=== PATIENT | female | born 1980 | race Caucasian/White ===

== ENCOUNTER 2018-01-23 17:25 | Inpatient (IN) | payer OTHER ==
[~2018-01-23] VITALS: Ht 172.7 cm; Wt 66.8 kg
--- NOTE | 2018-01-24 00:15 | NUR ---
HANDOFF REPORT RECEIVED FROM TELECOM ANALYST LENARD, PT ABLE TO AMBULATE FROM ED TO MS FLOOR ARRIVING AT 2240 W NURSING STAFF. IVF BOLUS INFUSING WNL. PT ASSESSMENT COMPLETE, PT DROWSY, EASILY AROUSABLE BY VOICE. RATES PAIN 4/10 IN LOWER ABDOMEN "CRAMPING", DENIES NAUSEA, BOWEL TONES ACTIVE X 4, TENDERNESS IN LOWER QUADRANT WITH MOVING, PALPATION, PAIN IS TOLERABLE. CSM INTACT BUE, BLE, LUNGS CLEAR THROUGHOUT. PT ON ROOM AIR. CALL LIGHT IN REACH, WILL CONTINUE TO MONITOR.
--- NOTE | 2018-01-24 01:58 | NUR ---
CHECKED ON PT, APPEARS TO BE SLEEPING, EYES CLOSED, VISIBLE CHEST RISE, LIGHTS OFF IN ROOM. IVF INFUSING.
--- NOTE | 2018-01-24 04:40 | NUR ---
PT ASSESSMENT COMPLETE AT THIS TIME, PT DROWSY, AWAKENS EASILY TO VOICE. CONTINUES TO RATE PAIN 4/10 IN LOWER ABD, BOWEL TONES ACTIVE X 4, ABDOMEN SOFT, NON-TENDER WITH LIGHT PALPATION. IVF INFUSING WNL. VITALS COMPLETE WNL. SCDS ON. CALL LIGHT IN REACH, NO REQUESTS AT THIS TIME.
--- NOTE | 2018-01-24 05:40 | NUR ---
PT INDEPENDANT IN ROOM. RECEIVED 1 L IVF BOLUS, IVF INFUSING THROUGHOUT SHIFT WNL. BOWEL TONES ACTIVE, ABD SOFT, PAIN TOLEABLE PER PT. NO DIARRHEA, NAUSEA NOTED. PT SLEEPING THROUGHOUT SHIFT AFTER ARRIVING TO MS FLOOR AT 2340. SCDS ON.
--- NOTE | 2018-01-24 06:55 | NUR ---
IV ZOSYN INFUSING WNL. PT DENIES NAUSEA, JELLO, BROTH GIVEN TO PT REQUESTED. SCDS ON. CALL LIGHT IN REACH.
--- NOTE | 2018-01-24 07:00 | NUR ---
BEDSIDE HANDOFF REPORT RECEIVED FROM MDS NURSE RN. PT RESTING IN BED, EATING JELLO. PT DENIES PAIN, DENIES NAUSEA. D5LR INFUSING AT 100 ML/HR, ZOSYN INFUSING. PT DENIES NEEDS AT THIS TIME.
--- NOTE | 2018-01-24 09:07 | NUR ---
PATIENT IN BED, EYES CLOSED. WOKE BRIEFLY THIS CLERK TRAVEL RESERVATIONS ENTERED ROOM. ROOM TIDIED, CALL LIGHT IN REACH, DENIED ANY OTHER NEEDS
--- NOTE | 2018-01-24 09:25 | NUR ---
PT RESTING IN BED. PT STATES PAIN TOELRABLE AT THIS TIME. PT DENIES NAUSEA. PT ON ROOM AIR, LUNG SOUNDS CLEAR. BOWEL TONES ACTIVE, TOLERATING CLEAR LIQUID DIET. IV FLUIDS INFUSING, IV PATENT, FLUSHED. PT WITHOUT EDEMA. CMS INTACT, SCDS IN PLACE. PT INDEPENDENT IN ROOM. PT DENIES OTHER NEEDS AT THIS TIME. DISCUSSED PLAN OF CARE FOR THE DAY.
--- NOTE | 2018-01-24 09:55 | NUR ---
Medication reconciliation completed.
--- NOTE | 2018-01-24 13:20 | NUR ---
PER PT REQUEST IV ATTEMPTED X2, UNABLE TO OBTAIN NEW IV SITE. PT DECLINING FOR ANOTHER NURSE TO ATTEMPT IV. PT INSTRUCTED TO ASK FOR NEW IV IF LEFT AC SITE CONTINUES TO INHIBIT MOVEMENT AND "IS IN THE WAY". LEFT AC SITE IS PATENT AND INFUSING.
--- NOTE | 2018-01-24 13:57 | NUR ---
PATIENT UP IN BED, VITALS AND I/OS RECORDED. CALLL LIGHT IN REACH, NO OHTER NEEDS
--- NOTE | 2018-01-24 17:29 | NUR ---
PT RESTING IN BED. PT PROVIDED WITH CRACKERS AND PEANUT BUTTER, AWAITING DINNER. PT ON ROOM AIR. IV FLUIDS CONTINUE TO INFUSE AT 125 ML/HR. PT PROVIDED WITH PO CIPRO AND FLAGYL, EDUCATED ON SIDE EFFECTS OF FLAGYL AND TOLD TO TAKE WITH FOOD. PT DENIES NAUSEA. INDEPENDENT IN ROOM. PT DENIES OTHER NEEDS AT THIS TIME. NO ACUTE CHANGES.
--- NOTE | 2018-01-24 17:32 | NUR ---
PT ON ROOM AIR, LUNG SOUNDS CLEAR. PT DENIED NAUSEA, PAIN TOLERABLE, DID NOT REQUIRE PAIN MEDICATION. IV FLUIDS INFUSING D5LR AT 125 ML/HR. TRANSITIONED TO PO ABX. PT INDEPENDENT IN ROOM. ADVANCED TO LOW FIBER DIET. VOIDING QS. PLAN TO DISCHARGE TOMORROW.
--- NOTE | 2018-01-24 17:42 | NUR ---
PATIENT UP IN ROOM, IN BR VITALS AND I/OS RECORDED. DIETARY IN WITH DINNER, PATIENT UP IN BED TO EAT. CALL LIGHT IN REACH.
--- NOTE | 2018-01-24 17:52 | HP ---
[facility] [address] [place], [place] [address] Signed ADMISSION DATE: 01/23/2018 REASON FOR ADMISSION: Acute diverticulitis with peridiverticular contained perforation. 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 She had no associated nausea, vomiting, or urinary symptoms particularly. She presented to the emergency room where she was thoroughly evaluated by Dr. Rizzo. Tenderness was noted in the suprapubic area. She had pelvic cramping since yesterday. She had no prior similar such symptoms of pain and evaluation was undertaken, which included a CT scan. A CT scan was rather remarkable for significant sigmoid diverticulitis with a peridiverticular phlegmon and air bubble outside the colon itself. There was no evidence of generalized free air. She was noted to have an elevated white count of 13.6. The patient has had no pneumaturia, or other bladder problems particularly. She has not known to have had diverticular problems in the past. A pelvic exam performed by the emergency room physician showed a normal exam. She was admitted for further evaluation and care. PAST MEDICAL HISTORY: Significant for bilateral tubal ligation. A beta HCG was obtained and was negative. ALLERGIES: She has no known drug allergies. MEDICATIONS: Takes no medications chronically. SOCIAL HISTORY: She is . She goes by the last name of ConsiderC. She works at [employer] locally. She has three children. The youngest is 20, who has now moved back home. She does not use alcohol. She does smoke on a daily basis. PHYSICAL EXAMINATION: GENERAL: A relatively thin white woman who looks not to be systemically toxic per se. Trachea is midline. Mucous membranes slightly dry. CHEST: Clear. HEART: Regular without murmur. Electronically Signed By: AMOR FRANKLIN MD 01/24/18 1752 PATIENT NAME: MAYI NEVAREZ HISTORY AND PHYSICAL DATE OF : 76 REPORT #: [id number] PHYSICIAN: AMOR FRANKLIN MD PCP: NO PRIMARY CARE PHYSICIAN REPORT IS CONFIDENTIAL AND NOT TO BE RELEASED WITHOUT AUTHORIZATION [facility] [address] [place], [place] [address] Signed ABDOMEN: Flat and nondistended. There is suprapubic tenderness to a lesser degree with left lower quadrant tenderness. She shows no sign of generalized peritonitis. There is no ascites. EXTREMITIES: No clubbing, cyanosis, or edema. She does have lower extremity tattoos. LABORATORY DATA: Studies show white count of 13.6, hematocrit 32.9, platelets 293,000. Electrolytes are normal, creatinine 0.83. Liver enzymes are normal. Lipase 23. Urinalysis is normal. She had small amount of leukocyte esterase. Urine white cells were 10. I reviewed the CT scan myself, which shows a rather significant phlegmon of a low sigmoid with air in the mesenteric portion without well-formed abscess proper. ASSESSMENT: She has rather significant acute diverticulitis. This is her first episode. I would recommend admission to the hospital, intravenous antibiotics, and bowel rest. Clear liquids might be allowed for comfort. I discussed the pathophysiology of the problem with the patient and her female friend who attends her at this time. She may require more than one day of IV antibiotics, but a transition to oral antibiotics and a low-fiber diet on the short term would be anticipated as well. We discussed that also. Ultimately, colonoscopy may be appropriate to assess for neoplastic disease, though it is less likely given her young age of 37 years. Amor Franklin MD /MODL /[id number] cc: Elenita Rizzo MD Copies: ELENITA RIZZO MD ~ Electronically Signed By: AMOR FRANKLIN MD 01/24/18 1752 PATIENT NAME: ENRICO BATESMAYI ANN HISTORY AND PHYSICAL DATE OF : 76 REPORT #: [id number] PHYSICIAN: AMOR FRANKLIN MD PCP: NO PRIMARY CARE PHYSICIAN REPORT IS CONFIDENTIAL AND NOT TO BE RELEASED WITHOUT AUTHORIZATION
--- NOTE | 2018-01-24 19:19 | NUR ---
PT VOIDING QS, LIGHT YELLOW URINE. DR. FRANKLIN CALLED ABOUT IV FLUID, VERBAL ORDER TO SALINE LOCK PT. IV FLUIDS STOPPED.
--- NOTE | 2018-01-24 19:20 | NUR ---
SHIFT REPORT RECEIVED. PATIENT RESTING IN BED. REPORTS PAIN IS TOLERABLE AT THIS TIME. NO NEEDS. CALL LIGHT IN REACH.
--- NOTE | 2018-01-24 21:45 | NUR ---
EVENING MEDS GIVEN PER ORDER. PATIENT RESTING IN BED. DENIES ANY PAIN. ABD SOFT AND NONTENDER. BOWEL SOUNDS ACTIVE. NO NAUSEA OR PAIN WITH EATING, TOLERATING LOW FIBER DIET FROM DINNER. LUNGS ARE CLEAR. CMS INTACT. NO OTHER NEEDS AT THIS TIME.
--- NOTE | 2018-01-25 01:00 | NUR ---
PATIENT APPEARS TO BE SLEEPING SOUNDLY. RR 16, EVEN AND NONLABORED.
--- NOTE | 2018-01-25 04:08 | NUR ---
PATIENT APPEARS TO BE SLEEPING SOUNDLY. WOKE EASILY TO VOICE. DENIES ANY PAIN. ASSESSMENT WNL.
--- NOTE | 2018-01-25 05:45 | NUR ---
PATIENT UP FOR THE MORNING. BREAKFAST ORDER RECEIVED. PATIENT DENIES PAIN. NO OTHER NEEDS.
--- NOTE | 2018-01-25 06:08 | NUR ---
PATIENT SLEPT MOST OF THE NIGHT. DENIED PAIN OR NAUSEA THROUGHOUT SHIFT. ABD IS SOFT, NONTENDER, BOWEL SOUNDS ACTIVE. PHYSICAL ASSESSMENT WNL. OUTPUT QS. TOLERATING LOW FIBER DIET. EDUCATION PROVIDED.
--- NOTE | 2018-01-25 08:30 | NUR ---
PATIENT RESTING IN BED. PATIENT STATING SHE TOLERATED HER LOW FIBER DIET WELL. NO NAUSEA OR ABD PAIN AT THIS TIME. PATIENT LUNGS CLEAR. NO OTHER COMPLAINT. ACTIVE BS.
[2018-01-25] MEDS ORDERED: CIPROFLOXACIN500 MG PO (09:31)
[2018-01-25] MEDS ORDERED: METRONIDAZOLE250 MG PO (09:32)
--- NOTE | 2018-01-25 10:59 | NUR ---
PATIENT GIVEN DISCHARGE PAPERWORK. PHARMACY IN ROOM TO DISCUSS NEW ANTIBIOTICS. NO FURTHER QUESTIONS.
--- NOTE | 2018-01-25 16:43 | DS ---
[facility] [address] [place], [place] [address] Signed ADMISSION DATE: 01/23/2018 DISCHARGE DATE: 01/25/2018 REASON FOR ADMISSION: This healthy 37-year-old white woman, works at [employer] and in the preceding 24 hours, developed rather severe and significant mid and central low abdominal pain. This was not associated with nausea or vomiting or urinary symptoms. Her evaluation in the emergency room was performed by Dr. Rizzo and findings including CT scan showed sigmoid diverticulitis with a peridiverticular phlegmon and air bubble. Her white count was elevated at 13.6. She is admitted for further evaluation and care. She has no pneumaturia or other bladder problems. PAST MEDICAL HISTORY: Significant for bilateral tubal ligation. PERTINENT PHYSICAL EXAMINATION: GENERAL: A thin white woman, who does not look to be systemically toxic. NECK: Trachea is midline. CHEST: Clear. HEART: Regular without murmur. HEENT: Mucous membranes slightly dry. ABDOMEN: Flat and nondistended. There is suprapubic tenderness to lesser degree and tenderness in the left lower quadrant as well. LABORATORY STUDIES: Showed white count 13.6, hematocrit 32.9, and platelets 293,000. Electrolytes normal. Creatinine 0.83. Liver enzymes are normal. Urine white cells were 10. CT scan was reviewed showing a phlegmon of the low sigmoid with air in the mesenteric portion without well-formed abscess proper. HOSPITAL COURSE: She was admitted on broad-spectrum antibiotic piperacillin and transitioned in 24 hours to oral Cipro and Flagyl. She was initiated on a low-fiber diet at 24 hours following admission, which she tolerated. By time of discharge, she is ambulating well, tolerating a low-fiber diet and oral Cipro and Flagyl. Her tenderness has largely resolved. It is anticipated she will see me back in 4 to 6 weeks. She will have one week of antibiotics as an outpatient. A colonoscopy will be performed when the acute inflammatory process settled entirely. This is particularly important as she did have Electronically Signed By: AMOR FRANKLIN MD 01/25/18 1643 PATIENT NAME: MAYI NEVAREZ DISCHARGE SUMMARY DATE OF : 76 REPORT #: [id number] PHYSICIAN: AMOR FRANKLIN MD PCP: NO PRIMARY CARE PHYSICIAN REPORT IS CONFIDENTIAL AND NOT TO BE RELEASED WITHOUT AUTHORIZATION [facility] [address] [place] [id number] Signed low-grade anemia with hematocrit of 32.9. DISCHARGE DIAGNOSES: 1. Acute diverticulitis with peridiverticular phlegmon and extraluminal air bubble. 2. History of bilateral tubal ligation. DISCHARGE MEDICATIONS: 1. Flagyl 250 mg p.o. t.i.d., #21. 2. Cipro 500 mg one p.o. b.i.d., #14. MD DYANA Espino/MODL /[id number] cc: Elenita Rizzo MD Copies: ELENITA RIZZO MD ~ Electronically Signed By: AMOR FRANKLIN MD 01/25/18 1643 PATIENT NAME: ENRICO CARTERMAYI FELIX MITCHELL DISCHARGE SUMMARY DATE OF : 76 REPORT #: [id number] PHYSICIAN: AMOR FRANKLIN MD PCP: NO PRIMARY CARE PHYSICIAN REPORT IS CONFIDENTIAL AND NOT TO BE RELEASED WITHOUT AUTHORIZATION
== END 2018-01-25 10:50 | disposition home or self-care (01) | DRG 392 ==
LOC: ED 17:25 → MS 21:55
PROVIDERS: ADMIT Surgery
DX: K57.20 Diverticulitis of large intestine with perforation and abscess without bleeding (principal); F17.200 Nicotine dependence, unspecified, uncomplicated; Z98.51 Tubal ligation status
CPT/HCPCS: 36415; 74177; 80053; 81001; 83690; 84703; 85025; 87088; 87491; 87591; 96374; 96375; 99285; J0295; J2405; J2543; J7120; Q9967

== ENCOUNTER 2018-03-21 12:12 | Day surgery (SDC) | payer OTHER ==
[~2018-03-21] VITALS: Ht 172.7 cm; Wt 65.3 kg
[~2018-03-21 12:12] MED LIST: CIPROFLOXACIN500 MG PO; METRONIDAZOLE250 MG PO
--- NOTE | 2018-03-21 15:22 | NUR ---
03/21/18 1522 Della Lawrence 1517 PT ARRIVED TO PACU ON 2L VIA OM. PT DROWSY, REORIENTED TO PACU. RESP EVENE AND UNLABORED. PT REPORTS NOT WANTING TO O2 MASK ON FACE. 1518 O2 SANA REMOVED, O2 SAT 100%. PT DENIES NAUSEA AND PAIN. PT BACK TO SLEEP.
--- NOTE | 2018-03-21 18:35 | OR ---
[facility] [address] [place], [place] [address] Signed DATE OF OPERATION: 03/21/2018 SURGEON: Amor Franklin MD PREOPERATIVE DIAGNOSIS: History of hospitalization for acute diverticulitis in January 2018. POSTOPERATIVE DIAGNOSIS: Scattered diverticula of the sigmoid. No sign of stricture, neoplasm, polyps, or colitis. PROCEDURE PERFORMED: Total colonoscopy to the cecum. ANESTHESIA: Intravenous sedation with fentanyl 150 mcg and Versed 6 mg. INDICATIONS FOR PROCEDURE: This 37-year-old white woman was hospitalized on January 25, 2018, with acute diverticulitis. She was noted to have a phlegmon and some extraluminal gas in the region of the sigmoid. This resolved promptly with antibiotic therapy and postoperative oral antibiotic therapy. This is her first episode. She has no family history of colon cancer that she is aware of. She was admitted to undergo colonoscopy to better define her colonic status, particularly to assess for neoplastic disease or colitis. Mindful of a high probability of diverticulitis, now resolved. She understands the risks of bleeding, infection, and perforation related to colonoscopy and wished to proceed. FINDINGS: The prep was excellent. Complete colonoscopy was undertaken to the sigmoid without question. There were several scattered diverticula of the sigmoid colon. No sign of active inflammation or stricture. Passage through the sigmoid was challenging to some degree, but well tolerated overall. There were no other findings of concern. DESCRIPTION OF PROCEDURE: The patient was brought to the endoscopy suite and placed in the lateral decubitus position given intravenous sedation to the point of slurred speech and nystagmus. Digital rectal examination was normal. Olympus video colonoscope was passed in the rectum and manipulated into the rectosigmoid, where passage was not forthcoming in a timely way and therefore the scope Electronically Signed By: AMOR FRANKLIN MD 03/21/18 1835 PATIENT NAME: MAYI NEVAREZ OPERATIVE REPORT DATE OF : 76 REPORT #: [id number] PHYSICIAN: AMOR FRANKLIN MD PCP: NO PRIMARY CARE PHYSICIAN REPORT IS CONFIDENTIAL AND NOT TO BE RELEASED WITHOUT AUTHORIZATION [facility] [address] [place], [place] [address] Signed was withdrawn and removed, another scope obtained. The scope was reintroduced and with better ability on the turning capacity of the scope, the scope was manipulated through the rectosigmoid into the sigmoid and ultimately beyond to the cecum itself. The ileocecal valve and appendiceal orifice were normal. The prep was good. The scope was withdrawn from that point and examination undertaken showed no sign of abnormality until the sigmoid, where a few scattered diverticula were noted. There was no sign of dense stricture, despite the challenge of passing through the area initially. The scope was further withdrawn and retroflexed view undertaken of the rectum, which was normal. Scope was removed and the patient was taken to the recovery room in good condition. CONCLUDING DIAGNOSIS: Diverticula confirmed on endoscopic evaluation. No evidence of stricture or neoplasm. No sign of polyps. PLAN: Recommend high-fiber diet at this point. If recurrent symptoms, a low-fiber diet and prompt call for further management. Followup colonoscopy recommended in 10 years or sooner if needed. MD DYANA Espino/KELLEYL /[id number] Copies: ~ Electronically Signed By: AMOR FRANKLIN MD 03/21/18 1835 PATIENT NAME: MAYI NEAVREZ MITCHELL OPERATIVE REPORT DATE OF : 76 REPORT #: [id number] PHYSICIAN: AMOR FRANKLIN MD PCP: NO PRIMARY CARE PHYSICIAN REPORT IS CONFIDENTIAL AND NOT TO BE RELEASED WITHOUT AUTHORIZATION
== END 2018-03-21 15:54 | disposition home or self-care (01) ==
LOC: DS 12:12 → OPS 12:12 → DS 13:00 → OPS 13:00
PROVIDERS: Surgery
PROC: 0DJD8ZZ Inspection of Lower Intestinal Tract, Via Natural or Artificial Opening Endoscopic (ICD-10-PCS; principal; 2018-03-21 13:00)
DX: K57.30 Diverticulosis of large intestine without perforation or abscess without bleeding (principal); F17.210 Nicotine dependence, cigarettes, uncomplicated; Z87.19 Personal history of other diseases of the digestive system
CPT/HCPCS: 99153; G0500; J2250; J3010; J7120

== ENCOUNTER 2018-05-10 21:52 | Emergency (ER) | payer OTHER ==
[~2018-05-10] VITALS: Ht 172.7 cm; Wt 65.3 kg
[2018-05-11] MEDS ORDERED: CIPRO500 MG PO (00:46)
[2018-05-11] MEDS ORDERED: FLAGYL500 MG PO (00:46)
[2018-05-11] MEDS ORDERED: NORCO 5-325 TA1 EACH PO (00:48)
== END 2018-05-11 01:05 | disposition home or self-care (01) ==
LOC: ED 21:52
DX: K57.92 Diverticulitis of intestine, part unspecified, without perforation or abscess without bleeding (principal); F17.200 Nicotine dependence, unspecified, uncomplicated
CPT/HCPCS: 74177; 80053; 81001; 83690; 84703; 85025; 96360; 99284; J7030; Q9967

== ENCOUNTER 2018-11-20 21:42 | Emergency (ER) | payer SELFPAY ==
[~2018-11-20] VITALS: Ht 172.7 cm; Wt 69.4 kg
[~2018-11-20 21:42] MED LIST changes: +CIPRO500 MG PO; +FLAGYL500 MG PO; +NORCO 5-325 TA1 EACH PO
[2018-11-20] MEDS ORDERED: AUGMENTIN 500-1 EACH PO (22:15)
== END 2018-11-21 01:39 | disposition home or self-care (01) ==
LOC: ED 21:42
DX: R10.31 Right lower quadrant pain (principal); F17.200 Nicotine dependence, unspecified, uncomplicated; Z79.899 Other long term (current) drug therapy
CPT/HCPCS: 74177; 80053; 81001; 83690; 84703; 85025; 96360; 99284-25; J7030; Q9967

== ENCOUNTER 2019-02-03 20:08 | Emergency (ER) | payer OTHER ==
[~2019-02-03] VITALS: Ht 172.7 cm; Wt 69.5 kg
[~2019-02-03 20:08] MED LIST changes: +AUGMENTIN 500-1 EACH PO
== END 2019-02-03 23:37 | disposition home or self-care (01) ==
LOC: ED 20:08
DX: K59.00 Constipation, unspecified (principal); F17.200 Nicotine dependence, unspecified, uncomplicated
CPT/HCPCS: 74177; 80053; 81001; 83690; 84703; 85025; 99284-25; J7030; Q9967

== ENCOUNTER 2020-08-18 18:44 | Emergency (ER) | payer OTHER ==
[~2020-08-18] VITALS: Ht 172.7 cm; Wt 77.2 kg
== END 2020-08-18 20:50 | disposition home or self-care (01) ==
LOC: ED 18:44
DX: N83.201 Unspecified ovarian cyst, right side (principal); Z87.891 Personal history of nicotine dependence
CPT/HCPCS: 74177; 80053; 81001; 83690; 83735; 84703; 85025; 99284-25; Q9967

== ENCOUNTER 2021-05-15 10:06 | Emergency (ER) | payer OTHER ==
[~2021-05-15] VITALS: Ht 172.7 cm; Wt 77.1 kg
== END 2021-05-15 15:34 | disposition home or self-care (01) ==
LOC: ED 10:06
DX: U07.1 COVID-19 (principal); K52.9 Noninfective gastroenteritis and colitis, unspecified; F17.200 Nicotine dependence, unspecified, uncomplicated
CPT/HCPCS: 74177; 80053; 81001; 83690; 83735; 84703; 85025; 87045; 87493; 96360; 96361; 99284-25; C9803; J7030; Q9967; U0003

== ENCOUNTER 2025-04-02 16:33 | Emergency (ER) | payer OTHER ==
[~2025-04-02] VITALS: Ht 172.7 cm; Wt 91.0 kg
[2025-04-02] MEDS ORDERED: MORPHINE SULFATE 4 MG/ML VIAL IV ONE (17:00)
[2025-04-02] MEDS ORDERED: SODIUM CHLORIDE 0.9% 1,000 ML IV ONE (17:00)
[2025-04-02 17:25] LABS: BASOPHILS 0.2 % (0.1-1.2); EOSINOPHILS 0.7 % (0.7-5.8); LYMPHOCYTES 12.9 % (19.3-51.7); MCH 29.0 PG (25.6-32.2); MCHC 33.6 g/dL (32.2-35.5); MCV 86.3 fL (79.4-94.8); MONOCYTES 5.7 % (4.7-12.5); NEUTROPHILS 80.2 % (34.0-71.1); RBC 4.80 M/uL (3.93-5.22)
[2025-04-02 17:40] LABS: ALT (SGPT) 27.0 U/L (14-59); AST (SGOT) 13.0 U/L (15-37); GLOMERULAR FILTRATION RATE,EST 98.0 mL/min (>60); PROTEIN, TOTAL 7.5 g/dL (6.4-8.2); UREA NITROGEN 8.0 mg/dL (7-18)
[2025-04-02 17:57] LABS: BLOOD/HGB, URINE TRACE-I (Negative); KETONE, URINE SMALL (Negative); LEUK ESTERASE, URINE NEGATIVE (negative); NITRITE, URINE NEGATIVE (negative)
[2025-04-02 18:02] LABS: BACTERIA, URINE NONE SEEN /hpf (negative); CASTS, URINE NONE SEEN \\lpf; CRYSTALS, URINE NONE SEEN (0-1+); REFLEX CULTURE, URINE No (No)
[2025-04-02 18:04] LABS: EPITHELIAL CELLS, URINE SQUAMOUS 1+ /lpf (0-1+)
[2025-04-02] MEDS ORDERED: AMOX TR-K CLV1 EAC1 PO (19:11)
[2025-04-02] MEDS ORDERED: AMOXICILLIN/CLAVULANATE K 875 MG HOME.PACK PO ONE (19:45)
[2025-04-02] MEDS ORDERED: AMOXICILLIN/CLAVULANATE K 875 MG TAB PO ONE (19:45)
[2025-04-02 20:07] VITALS: BP 147/89
== END 2025-04-02 20:09 | disposition home or self-care (01) ==
LOC: ED 16:33
PROVIDERS: Emergency Medicine
DX: K57.32 Diverticulitis of large intestine without perforation or abscess without bleeding (principal); F17.200 Nicotine dependence, unspecified, uncomplicated
CPT/HCPCS: 36415; 74177; 80053; 81001; 83605; 83690; 84703; 85025; 96374; 96375; 99284-25; J2270; J2405; J7030; Q9967